=== PATIENT | female | born 1965 | race Caucasian/White ===

== ENCOUNTER → 2016-09-03 | Outpatient (CLI) | payer OTHER ==
[~2016-09-03] MED LIST: ADVAIR 250-501 EAC1 INH; ADVAIR 250-501 EACH IH; ADVAIR 2501 DISK W/D PO; ALBUTEROL17 GM; ALBUTEROL17 GM INH; AMBIEN PO; ANTIVERT PO; BENZONATATE PO; CELEXA20 MG PO; CIPRO PO; CLARITIN10 MG PO; CLEOCIN150 MG PO; CLOTRIMAZOLE15 GM; CRESTOR PO; DETROL LA PO; DETROL2 M1 PO; DUONEB 2.5-0.5 M3 ML NEB; EPIPEN0.3 MG/0.1 IM; FLAGYL; FLEXERIL10 M1 PO; FLOVENT DI50 MCG/DIS IH; FORTAMET; GLUCOMETER DE1 STRIP IN; GLUCOPHAGE XR500 MG PO; GLUCOTROL PO; IBUPROFEN800 MG PO; JANUVIA PO; KLONOPIN0.5 MG PO; LEVAQUIN750 M1 PO; LEVOTHROID100 MC1 PO; LIPITOR PO; LISINOPRIL PO; LORTAB 7.5-5001 TAB PO; METFORMIN PO; NO MEDICATIONS; OMEPRAZOLE40 MG PO; PHENERGAN PO; PREDNISONE PO; PROAIR HFA8.5 GM INH; PROVENTIL0.83 MG/ML IH; ROBAXIN500 MG PO; ROBITUSSIN A-C S5 ML PO; SINGULAIR PO; SYNTHROID PO; TYLENOL #3 PO; VENTOLIN5 MG/ML IH; VIBRAMYCIN100 M1 DOB; ZANTAC PO; ZYRTEC10 M2 PO
--- NOTE | ~2016-09-03 | MY11 ---
[facility] A Service of [facility] / [facility] RADIOLOGY TEXT RESULTS PATIENT: RYELY CAMERON LOCATION: [facility] : 63 UNIT #: [id number] AGE: [address]: Baudilio Bolanos MD SEX: F ORDER DR: [id number] [facility] [address]. [place], [place] [address] [id number] O MR#: [id number] Acc #: [id number] NAME: RYLEY CAMERON : 1965 SEX: F STUDY DATE/TIME: 09/03/2016 10:12 UNIT: [facility] ROOM: STUDY DESCRIPTION: MY Mammogram Screening [facility] [place] Attending Physician: Baudilio Bolanos M.D. Referring Physician: Baudilio Bolanos M.D. Ordering Physician: Baudilio Bolanos M.D. Primary Care Physician: Baudilio Bolanos M.D. MEDICAL IMAGING REPORT This report is preliminary unless electronic signature is present EXAM Bilateral digital screening mammogram with CAD HISTORY Routine screening. No current complaints. No family history of breast cancer. COMPARISON 03/11/2015, 01/23/2013. FINDINGS MLO and CC digital views of each breast were obtained and reviewed with an FDA-approved CAD device. The breasts are almost entirely fatty replaced. There are no masses or abnormal calcifications. There has been no change. IMPRESSION No change. No evidence of malignancy. Patients over the age of 40 are entered into a reminder system with target due date for the next mammogram. A result letter will also be sent to the patient. BIRADS: 1 Negative Dictated by... Michael Tucker M.D. THIS IS AN ELECTRONICALLY VERIFIED REPORT Michael Tucker M.D. at 09/03/2016 1:53 PM JONATHAN/clinton TD: 09/03/2016 13:15 [facility] A Service of [facility] / [facility] RADIOLOGY TEXT RESULTS PATIENT: RYLEY CAMERON LOCATION: [facility] : 63 UNIT #: [id number] AGE: [address]: Baudilio Bolanos MD SEX: F ORDER DR: JOB #: [id number] MEDICAL IMAGING REPORT Page 1 of 1 COPY
== END | disposition home or self-care (01) ==
LOC: CWCC 10:03
DX: Z12.31 Encounter for screening mammogram for malignant neoplasm of breast (principal)
CPT/HCPCS: G0202